=== PATIENT | female | born 1960 | race American Indian/Alaskan Native ===

== ENCOUNTER 2018-02-28 17:44 | Emergency (ER) | payer OTHER ==
[2018-02-28] MEDS ORDERED: MOTRIN PO ONE (19:32)
--- NOTE | 2018-02-28 19:32 | Emergency Department Report ---
ED Fall HPI - General Chief Complaint: Pain General Stated Complaint: PAIN IN COLLARBONE Time Seen by Provider: 02/28/18 19:06 Source: patient Mode of arrival: Ambulatory - History of Present Illness Initial Comments: Patient reports that she slipped in vomit at parking lot yesterday at the gas station were somebody else vomited and she fell and hit her right collarbone and complain the pain at 4-10 to right collarbone worse to touch. No pain with taking a deep breath in. Denies any chest pain or shortness of breath. Denies any nausea or vomiting. Denies any headache dizziness or blurred vision. Fall was accidental from ground level. Denies any medical problem except she had a history of appendicitis where she had appendectomy and also history of tubal ligation. No medication taken for pain. Patient does have a primary care physician. Denies vomiting blood. Denies any back pain or abdominal pain. MD Complaint: fall (accidental after slipping and somebody else's vomit) Onset/Timin -: days(s) Fall From: standing When Fall Occurred: 24 hours [employer]IENT SUCCESS [employer]IST Fall Witnessed: yes, by bystander Place Fall Occurred: street (at gas station) Loss of Consciousness: none Prolonged Down Time?: no Symptoms Prior to Fall: none Location: chest (right clavicle) Severity scale (0 -10): 4 Quality: sharp Context: tripped/slipped Associated Symptoms: denies: headache, neck pain, numbness, weakness, chest paint, shortness of breath, abdominal pain, hematuria, unable to walk, lightheaded, vertigo, confusion - Related Data Previous Rx's Medication Instructions Recorded Last Taken Type Ibuprofen [Motrin] 600 mg PO Q8H PRN #12 tablet 02/28/18 Unknown Rx Allergies Allergy/AdvReac Type Severity Reaction Status Date / Time No Known Allergies Allergy Unverified 02/28/18 17:55 ED Review of Systems ROS: Stated complaint: PAIN IN COLLARBONE Other details as noted in HPI Constitutional: denies: chills, fever Eyes: denies: eye pain, eye discharge, vision change ENT: denies: ear pain, throat pain, congestion Respiratory: denies: cough, orthopnea, shortness of breath, SOB with exertion, SOB at rest, stridor, wheezing Cardiovascular: denies: chest pain, palpitations, dyspnea on exertion, edema, syncope Gastrointestinal: denies: abdominal pain, nausea, vomiting, diarrhea, constipation Genitourinary: denies: urgency, dysuria, discharge Musculoskeletal: arthralgia (right clavicular pain). denies: back pain, joint swelling, myalgia Skin: denies: rash, lesions Neurological: denies: headache, weakness, numbness, paresthesias, confusion, abnormal gait, vertigo ED Past Medical Hx - Past Medical History Previous Medical History?: Yes - Surgical History Past Surgical History?: Yes Hx Appendectomy: Yes Additional Surgical History: tubal ligation - Family History Family history: hypertension - Social History Smoking Status: Never Smoker Substance Use Type: None - Medications Home Medications: Home Medications Medication Instructions Recorded Confirmed Last Taken Type Ibuprofen [Motrin] 600 mg PO Q8H PRN #12 tablet 02/28/18 Unknown Rx ED Physical Exam - General Limitations: No Limitations General appearance: alert, in no apparent distress - Head Head exam: Present: atraumatic, normocephalic, normal inspection, other (normal exam) - Eye Eye exam: Present: normal appearance, PERRL, EOMI Pupils: Present: normal accommodation - ENT ENT exam: Present: normal exam, normal orophraynx, mucous membranes moist - Neck Neck exam: Present: normal inspection, full ROM, other (no C-spine tenderness). Absent: tenderness, meningismus, lymphadenopathy - Respiratory Respiratory exam: Present: normal lung sounds bilaterally, chest wall tenderness (tenderness to palpate to right clavicle mid. No tenting noted. Minimal swelling). Absent: respiratory distress, wheezes, rales, rhonchi, stridor, accessory muscle use, decreased breath sounds, prolonged expiratory - Cardiovascular Cardiovascular Exam: Present: regular rate, normal rhythm, normal heart sounds. Absent: systolic murmur, diastolic murmur - GI/Abdominal GI/Abdominal exam: Present: soft, normal bowel sounds. Absent: distended, tenderness, guarding, rebound, rigid, organomegaly, mass, bruit, pulsatile mass , hernia - Extremities Exam Extremities exam: Present: normal inspection, full ROM, normal capillary refill , other (no clubbing, cyanosis or edema. +2 pulses to all extremities and no neurovascular compromise). Absent: tenderness, pedal edema, joint swelling, calf tenderness - Back Exam Back exam: Present: normal inspection, full ROM, other (ambulates without difficulties). Absent: tenderness, CVA tenderness (R), CVA tenderness (L), muscle spasm, paraspinal tenderness, vertebral tenderness, rash noted - Neurological Exam Neurological exam: Present: alert, oriented X3, normal gait, reflexes normal. Absent: motor sensory deficit - Psychiatric Psychiatric exam: Present: normal affect, normal mood - Skin Skin exam: Present: warm, dry, intact, normal color. Absent: rash ED Course Vital Signs 02/28/18 02/28/18 02/28/18 17:55 19:41 22:36 Temperature 99.2 F 98.5 F Pulse Rate 75 78 Respiratory 18 18 18 Rate Blood Pressure 112/68 Blood Pressure 148/68 [Right] O2 Sat by Pulse 98 99 Oximetry - Reevaluation(s) Reevaluation #1: 02/28/18 22:22 She given Motrin 800 mg emergency room which relieved her pain. She is stable without no complaints ED Medical Decision Making - Radiology Data Radiology results: report reviewed Chest x-ray revealed no acute abnormality and no bony abnormality. The patient with mild cardiomegaly which she is asymptomatic and says she doesn't have any medical problems to include hypertension. She also has mild pulmonary venous congestion and she is not short of breath. Patient also has a 5 mm nodule to her right lung and she says she is unaware of this but hasn't had a chest x-ray in a while. She does have a primary care physician. X-ray was dictated by radiologist and films are reviewed by myself and Dr. Cheung Patient: VERNELL GROSS MR#: [id number] : 1960 Acct:[id number] Age/Sex: 57 / F ADM Date: 02/28/18 Loc: ED Attending Dr: Ordering Physician: JB DUKE Date of Service: 02/28/18 Procedure(s): XR chest routine 2V Accession Number(s): [id number] cc: JB DUKE Fluoro Time In Minutes: FINAL REPORT PROCEDURE: XR CHEST ROUTINE 2V TECHNIQUE: PA and lateral chest radiographs were obtained. CPT 80542 HISTORY: fell and injury to RT collar bone. chest pain COMPARISON: No prior studies are available for comparison. FINDINGS: Heart: Mild cardiomegaly is noted. Mediastinum/Vessels: Mild pulmonary venous congestion is noted. Lungs/Pleural space: Right lung demonstrates a nodule measuring 5 millimeters in the lower lobe. Left lung and bilateral pleural spaces are clear.. Bony thorax: No acute osseous abnormality. Other: IMPRESSION: Mild cardiomegaly with mild pulmonary venous congestion 5 millimeter nodule right lower lobe. CT scan may be recommended for further evaluation. No acute bony abnormality. Transcribed By: [facility] [place]ictated By: CLAUDIO MORALES Electronically Authenticated By: CLAUDIO MORALES Signed Date/Time: 02/28/182023 DD/ 23 TD/TT: 02/28/182023 - Medical Decision Making ED course Summary of patient presents to emergency room after falling and I guess patient in reporting that she slipped and somebody else's vomit and injured her right clavicle she is having pain. She is here to be seen. Patient was seen and examined by myself and chest x-ray was dictated by radiologist and report reviewed by myself and no acute findings noted. Both clavicles normal findings but patient had incidental findings for mild cardiomegaly, right pulmonary nodule, pulmonary venous congestion. Patient is stable and pain controlled with Motrin. She is a contusion of her right clavicle, clavicle pain after falling. I discussed diagnosis and multiple incidental findings on chest x-ray with patient and discussed with her that she needs to follow up with a pulmonary doctor and also petroleum sampler for evaluation and she voiced understanding. This case was discussed with attending physician Dr. Cheung and he agrees with plan. A/P Clinical Impression: 1:Pain of right clavicle-better with Motrin times her milligrams by mouth 1 and plan to send home on pain medication. X-ray findings for no acute fracture. 2: Mild cardiomegaly, -referred to petroleum sampler, patient is asymptomatic 3:Pulmonary nodule, right,-referred to veneer lathe operator, patient is asymptomatic 4: Pulmonary venous congestion-referred to veneer lathe operator, pt is asymptomatic 5:Contusion of right clavicle-Rice therapy. 6:Accidental fall-stable. Prescription given for Motrin up and discharge. Referral to a petroleum sampler and veneer lathe operator for incidental finding on x-rays. This was discussed with patient and she voiced understanding Education on medication, multiple diagnosis which were incidental finding on x- ray, Rice therapy and need to follow-up for referral Patient discharged home in stable condition, nontoxic in appearance. She is feeling better and her pains controlled. Vital signs are stable and she is nontoxic in appearance. Discharge home with multiple referral for follow-up and she voiced understanding. - Differential Diagnosis clavicle fracture, contusion, musculoskeletal pain Critical care attestation.: If time is entered above; I have spent that time in minutes in the direct care of this critically ill patient, excluding procedure time. ED Disposition Clinical Impression: Pain of right clavicle, Mild cardiomegaly, Pulmonary nodule, right, Pulmonary venous congestion Contusion of right clavicle Qualifiers: Encounter type: initial encounter Qualified Code(s): S40.011A - Contusion of right shoulder, initial encounter Accidental fall Qualifiers: Encounter type: initial encounter Qualified Code(s): W19.XXXA - Unspecified fall, initial encounter Disposition: TO HOME OR SELFCARE Is pt being admited?: No Does the pt Need Aspirin: No Condition: Stable Instructions: Contusion in Adults (ED), Musculoskeletal Pain (ED), Pulmonary Nodules (ED) Additional Instructions: Please see referral to lung doctor for x-ray findings for right lung nodule. Please see referral to cardiology for x-ray findings for mild venous pulmonary congestion and also mild cardiomegaly Take Motrin for pain but please do not take on empty stomach as this can cause irritation to stomach lining Follow-up your primary care in 2-3 days and take x-ray report with you If you symptoms worsen and if he developed chest pain, shortness of breath, please return to the emergency room DEL[facility] Prescriptions: Ibuprofen [Motrin] 600 mg PO Q8H PRN #12 tablet PRN Reason: Pain Referrals: PRIMARY CARE, [Primary Care Provider] - 2-3 Days [facility] [Outside] - 2-3 Days NICHOLE PERRY MD [Staff Physician] - 2-3 Days LINSEY PACK MD [Staff Physician] - 2-3 Days Forms: Work/School Release Form(ED)
--- NOTE | 2018-02-28 21:44 | XRay Report ---
FINAL REPORT PROCEDURE: XR CHEST ROUTINE 2V TECHNIQUE: PA and lateral chest radiographs were obtained. CPT 93238 HISTORY: fell and injury to RT collar bone. chest pain COMPARISON: No prior studies are available for comparison. FINDINGS: Heart: Mild cardiomegaly is noted. Mediastinum/Vessels: Mild pulmonary venous congestion is noted. Lungs/Pleural space: Right lung demonstrates a nodule measuring 5 millimeters in the lower lobe. Left lung and bilateral pleural spaces are clear.. Bony thorax: No acute osseous abnormality. Other: IMPRESSION: Mild cardiomegaly with mild pulmonary venous congestion 5 millimeter nodule right lower lobe. CT scan may be recommended for further evaluation. No acute bony abnormality.
[2018-02-28 22:39] VITALS: BP 148/68
== END 2018-02-28 22:40 | disposition home or self-care (01) ==
LOC: ED 17:44
DX: S40.011A Contusion of right shoulder, initial encounter (principal); M54.2 Cervicalgia; R91.1 Solitary pulmonary nodule; I51.7 Cardiomegaly; W19.XXXA Unspecified fall, initial encounter; Y93.89 Activity, other specified; Y99.8 Other external cause status; Y92.89 Other specified places as the place of occurrence of the external cause
CPT/HCPCS: 71046

== ENCOUNTER 2018-03-10 06:16 | Emergency (ER) | payer OTHER ==
[2018-03-10 07:17] VITALS: BP 102/70
--- NOTE | 2018-03-10 07:48 | Emergency Department Report ---
- General Chief complaint: Skin Rash Stated complaint: SKIN RASH Time Seen by Provider: 03/10/18 07:34 Source: patient Mode of arrival: Ambulatory Limitations: No Limitations - History of Present Illness Initial comments: 57-year-old female with past presents with complaint of rash to both forearms. Patient denies any new cosmetics new pads and creams and lotions. Denies any pain associated with rash denies any fever or chills. States she was cutting some karen bushes over the weekend outside her home. Denies rash to any other body part other than forearms. Visible isolated slightly raised erythematous lesions with slightly flaky skin approximately 3-4 lesions between left and right lateral forearms. Patient's tetanus status is up to date as per patient MD complaint: rash Onset/Timin Location: LUE, RUE Severity: moderate Associated symptoms: denies other symptoms - Related Data Previous Rx's Medication Instructions Recorded Last Taken Type Ibuprofen [Motrin] 600 mg PO Q8H PRN #12 tablet 02/28/18 Unknown Rx Calamine/Zinc 8-8% [Calamine] 1 applic TP QDAY #1 bottle 03/10/18 Unknown Rx Clotrimazole 1%(Nf) [Lotrimin 1 applic TP BID #1 bottle 03/10/18 Unknown Rx Lotion] Hydrocortisone 1% [Hydrocortisone 1 applicatio TP TID #1 tube 03/10/18 Unknown Rx 1% CREAM] Loratadine [Claritin] 10 mg PO DAILY #14 tablet 03/10/18 Unknown Rx Allergies Allergy/AdvReac Type Severity Reaction Status Date / Time No Known Allergies Allergy Verified 03/10/18 07:16 Abscess Boil HPI - HPI Chief Complaint: Skin Rash Stated Complaint: SKIN RASH Time Seen by Provider: 03/10/18 07:34 Home Medications: Previous Rx's Medication Instructions Recorded Last Taken Type Ibuprofen [Motrin] 600 mg PO Q8H PRN #12 tablet 02/28/18 Unknown Rx Calamine/Zinc 8-8% [Calamine] 1 applic TP QDAY #1 bottle 03/10/18 Unknown Rx Clotrimazole 1%(Nf) [Lotrimin 1 applic TP BID #1 bottle 03/10/18 Unknown Rx Lotion] Hydrocortisone 1% [Hydrocortisone 1 applicatio TP TID #1 tube 03/10/18 Unknown Rx 1% CREAM] Loratadine [Claritin] 10 mg PO DAILY #14 tablet 03/10/18 Unknown Rx Allergies/Adverse Reactions: Allergies Allergy/AdvReac Type Severity Reaction Status Date / Time No Known Allergies Allergy Verified 03/10/18 07:16 ED Review of Systems ROS: Stated complaint: SKIN RASH Other details as noted in HPI Constitutional: denies: chills, fever Eyes: denies: eye pain, eye discharge, vision change ENT: denies: ear pain, throat pain Respiratory: denies: cough, shortness of breath, wheezing Cardiovascular: denies: chest pain, palpitations Endocrine: no symptoms reported Gastrointestinal: denies: abdominal pain, nausea, diarrhea Genitourinary: denies: urgency, dysuria, discharge Musculoskeletal: denies: back pain, joint swelling, arthralgia Skin: as per HPI. denies: rash, lesions Neurological: denies: headache, weakness, paresthesias Psychiatric: denies: anxiety, depression Hematological/Lymphatic: denies: easy bleeding, easy bruising ED Past Medical Hx - Surgical History Hx Appendectomy: Yes Additional Surgical History: tubal ligation - Social History Smoking Status: Never Smoker Substance Use Type: None - Medications Home Medications: Home Medications Medication Instructions Recorded Confirmed Last Taken Type Ibuprofen [Motrin] 600 mg PO Q8H PRN #12 tablet 02/28/18 Unknown Rx Calamine/Zinc 8-8% [Calamine] 1 applic TP QDAY #1 bottle 03/10/18 Unknown Rx Clotrimazole 1%(Nf) [Lotrimin 1 applic TP BID #1 bottle 03/10/18 Unknown Rx Lotion] Hydrocortisone 1% [Hydrocortisone 1 applicatio TP TID #1 tube 03/10/18 Unknown Rx 1% CREAM] Loratadine [Claritin] 10 mg PO DAILY #14 tablet 03/10/18 Unknown Rx ED Physical Exam - General Limitations: No Limitations General appearance: alert, in no apparent distress - Head Head exam: Present: atraumatic, normocephalic - Eye Eye exam: Present: normal appearance - ENT ENT exam: Present: mucous membranes moist - Neck Neck exam: Present: normal inspection - Respiratory Respiratory exam: Present: normal lung sounds bilaterally. Absent: respiratory distress - Cardiovascular Cardiovascular Exam: Present: regular rate, normal rhythm. Absent: systolic murmur, diastolic murmur, rubs, gallop - GI/Abdominal GI/Abdominal exam: Present: soft, normal bowel sounds - Extremities Exam Extremities exam: Present: full ROM, other (bilateral circular lesions performs) - Back Exam Back exam: Present: normal inspection - Neurological Exam Neurological exam: Present: alert, oriented X3, CN II-XII intact, normal gait - Psychiatric Psychiatric exam: Present: normal affect, normal mood - Skin Skin exam: Present: warm, dry, intact, normal color. Absent: rash - Expanded Skin Exam Expanded Description of rash: Present: macular, papular 1 - Reddish raised plaques here 2 - Reddish raised plaques ED Course Vital Signs 03/10/18 07:16 Temperature 98.6 F Pulse Rate 76 Respiratory 18 Rate Blood Pressure 102/70 O2 Sat by Pulse 99 Oximetry ED Medical Decision Making - Medical Decision Making A/P: Rash on forearms, tinea corporis versus phytophotodermatitis 1-topical hydrocortisone, topical clotrimazole 2-Claritin, calamine lotion 3-referral to dermatology 4- advised patient to return to the ED for any fevers chills associated with rash of rash rapidly spreads. Patient denies contact with any insects. The patient has no systemic signs of disease and no intraoral or mucosal rash. Critical care attestation.: If time is entered above; I have spent that time in minutes in the direct care of this critically ill patient, excluding procedure time. ED Disposition Clinical Impression: Rash and nonspecific skin eruption Disposition: DC-01 TO HOME OR SELFCARE Is pt being admited?: No Does the pt Need Aspirin: No Condition: Stable Instructions: Tinea Corporis (ED), Acute Rash (ED) Prescriptions: Calamine/Zinc 8-8% [Calamine] 1 applic TP QDAY #1 bottle Clotrimazole 1%(Nf) [Lotrimin Lotion] 1 applic TP BID #1 bottle Hydrocortisone 1% [Hydrocortisone 1% CREAM] 1 applicatio TP TID #1 tube Loratadine [Claritin] 10 mg PO DAILY #14 tablet Referrals: [facility] [Provider Group] - 3-5 Days Forms: Work/School Release Form(ED) Time of Disposition: 07:51
== END 2018-03-10 08:06 | disposition home or self-care (01) ==
LOC: ED 06:16
DX: R21 Rash and other nonspecific skin eruption (principal)
CPT/HCPCS: 99282